=== PATIENT | female | born 1935 | race Caucasian/White ===

== ENCOUNTER 2022-05-18 15:06 | Emergency (ER) | payer MEDICARE, BC ==
[2022-05-18] MEDS ORDERED: Sodium Chloride 0.9% 1,000 ML IV ONE (15:38)
[2022-05-18] MEDS ORDERED: Ondansetron 4 MG/2 ML SDV IVPUSH ONE (15:40)
[2022-05-18 16:29] LABS: ANION GAP 18.3 meq/L (7-15); CHLORIDE,CL 94 mmol/L (98-107); ESTIMATED GFR 28 mL/min (>=60); SODIUM,NA 136 mmol/L (136-145)
== END 2022-05-18 17:40 | disposition home or self-care (01) ==
LOC: LL.ED 15:06
DX: K52.9 Noninfective gastroenteritis and colitis, unspecified (principal); I48.19 Other persistent atrial fibrillation; Z88.1 Allergy status to other antibiotic agents
CPT/HCPCS: 36415; 80053; 84484; 85025; 93005; 93010; 96361; 96374; 99284; 99284-25; J2405; J7030